=== PATIENT | female | born 1940 | race Caucasian/White ===

== ENCOUNTER 2017-12-24 22:06 | Emergency (ER) | payer OTHER, SELFPAY ==
--- NOTE | 2017-12-24 22:07 | DI.RAD.S_ITS ---
PROCEDURE: XR WRIST LT MIN 3V INDICATIONS: left wrist injury,pt fell onto outstretched arm TECHNIQUE: 4 views of the wrist were acquired. COMPARISON: None. FINDINGS: Bones: There is comminuted intra-articular fracture of the distal radial metaphysis with dorsal displacement and impaction. In addition, there is ulnar styloid fracture with no displacement. No suspicious bony lesions. There is widening of distal radioulnar joint (DRUJ). Dorsal displacement of lunate. 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 Scaphoid view: Scaphoid appears intact. Soft tissues: Triangular fibrocartilage calcifications. Soft tissue thickening. IMPRESSION: 1. Comminuted intra-articular fracture of the distal radial metaphysis with displacement and impaction. 2. Nondisplaced ulnar styloid fracture. 3. Dorsal displacement of lunate suspicious for ligamentous injuries. 4. Triangular fibrocartilage calcifications. Dictated by: Zechariah Byrne M.D. on 12/25/2017 at 9:17 Approved by: Zechariah Byrne M.D. on 12/25/2017 at 9:27
[2017-12-24 22:15] VITALS: BP 150/76; PULSE 80; RESP 20; TEMP 36.6; O2SAT 97; BMI 20.9
--- NOTE | 2017-12-25 00:18 | DI.RAD.S_ITS ---
PROCEDURE: XR WRIST LT 2V INDICATIONS: post reduction TECHNIQUE: 2 views of the wrist were acquired. COMPARISON: [facility], CR, XR WRIST LT MIN 3V, 12/24/2017, 21:56. FINDINGS: Bones: There is comminuted, intra-articular radial metaphyseal fracture. There is slightly improved alignment status post closed reduction. Findi dose are obscured by overlying cast. No suspicious bony lesions. Soft tissues: No suspicious soft tissue calcifications. IMPRESSION: Slightly improved alignment after closed reduction of distal radial metaphyseal fracture. Dictated by: Zechariah Byrne M.D. on 12/25/2017 at 9:40 Approved by: Zechariah Byrne M.D. on 12/25/2017 at 9:42
--- NOTE | 2017-12-25 00:18 | ED_ITS ---
HPI - Extremity Injury (Upper) General Chief Complaint: Extremity Injury, Upper Stated Complaint: Left Wrist Injury Time Seen by Provider: 12/25/17 00:16 Source: patient Mode of arrival: ambulatory Limitations: no limitations History of Present Illness HPI narrative: The patient is a 77-year-old female who presents from [facility] with left wrist deformity. She fell forward on an outstretched hand while walking her dog. Denies numbness or tingling. She does appear to have hit her head as well she has got an abrasion on the left side denies loss of consciousness no nausea vomiting or weakness. Related Data Previous Rx's Medication Instructions Recorded hydrocodone-acetaminophen [[place]] 1 tab PO Q6H PRN #10 tab 12/25/17 Allergies Allergy/AdvReac Type Severity Reaction Status Date / Time ephedrine [From TEDRAL] Allergy Intermediate VOMITING Verified 12/24/17 22:18 phenobarbital [PHENOBARBITAL] Allergy Intermediate VOMITING Verified 12/24/17 22 :18 theophylline [From TEDRAL] Allergy Intermediate VOMITING Verified 12/24/17 22:18 Review of Systems Review of Systems GENERAL: Denies chills,fever HEENT: Denies throat pain RESPIRATORY: Denies dyspnea, cough, wheezing CARDIOVASCULAR: Denies chest pain, palpitations GASTROINTESTINAL: Denies nausea, vomiting MUSCULOSKELETAL: See HPI SKIN: No rash, no laceration, no pruritus NEUROLOGIC: Denies weakness, dizziness, headache, numbness 8 point review of systems is negative except for those stated above and HPI PFSH Medical History Hyperlipidemia (Acute) Hypothyroid (Acute) Social History Smoking Status: Former smoker alcohol intake: never substance use type: does not use Exam Initial Vital Signs Initial Vital Signs: Vital Signs Temperature 98 F 12/24/17 22:15 Pulse Rate 80 12/24/17 22:15 Respiratory Rate 20 12/24/17 22:15 Blood Pressure 150/76 H 12/24/17 22:15 Pulse Oximetry 97 12/24/17 22:15 GENERAL: Well-appearing, well-nourished and in no acute distress. HEAD: Abrasion noted on left side of forehead without crepitations or depression EYES: Extraocular muscles intact, EZE CARDIOVASCULAR: peripheral pulses in tact, cap refill <2 sec RESPIRATORY: No respiratory distress, speaks in full sentences without difficulty EXTREMITIES: Normal range of motion, no clubbing or edema. Neurovascularly intact Left wrist: Contusion and swelling noted laterally. No obvious bony deformity a distal radial pulse intact able to move all 4 NEUROLOGICAL: Cranial nerves II through XII grossly intact. Normal gait and speech. SKIN: Warm, dry, no petechiae, no rashes or lesions. Procedures Orthopedic Fracture Reduction Fracture #1: Time Out Performed: Yes Side: left Fracture Reduction Location: radius Analgesia: hematoma block Technique: direct manipulation Post Reduction X-rays Demonstrate: acceptable reduction Post-reduction neuro exam: intact Post-reduction vascular exam: intact Splint Applied: Yes Patient Tolerated Procedure: Well Orthopedic Splinting/Casting Injury #1: Side: left Upper Extremity Injury Location: wrist Upper Extremity Immobilizer: posterior splint and volar splint Additional Comments: Splint applied by me and 1st nurse neurovascularly intact Course Orders Ordered: ED Orders 12/24/17 22:07 XR wrist LT min 3V Stat 12/25/17 00:18 XR wrist LT 2V Stat Discontinued Medications Hydrocodone Bitart/Acetaminophen (Vicodin Prepack) 1 bottle MISC SEEINSTR ONE Stop: 12/25/17 00:17 Last Admin: 12/25/17 00:27 Dose: 1 bottle Vital Signs - 8 hr 12/24/17 22:15 12/25/17 01:08 Temperature 98 F 98.2 F Pulse Rate 80 84 Respiratory Rate 20 16 Blood Pressure 150/76 H Blood Pressure [Right Arm] 136/68 H Pulse Oximetry 97 MDM - Extremity Injury (Upper) Imaging Data Left wrist x-ray 1.: Attestation: I personally reviewed and interpreted this imaging study as follows: My impression: Comminuted displaced intra-articular distal radius fracture Left wrist x-ray 2.: Attestation: I personally reviewed and interpreted this imaging study as follows: My impression: Improved alignment persistent comminuted fracture questionable hamate dislocation MDM Narrative Medical decision making narrative: The patient states it is feeling better after his reduction and splint placement. She will likely need surgery. I have discussed this with her. She understands she will call Orthopedics in the morning and follow-up. Discharge Plan Departure Patient Disposition: Home, Self-Care Clinical Impression: Fracture of left wrist Discharge Date/Time: 12/25/17 01:22 Interventions: ED Discharge Assessment Last Done: 12/25/17 01:21 Instructions: DI for Wrist Fracture Activity Restrictions/Additional Instructions: *You have been diagnosed with left wrist fracture *What to do: Keep arm in splint at all times until evaluation by Orthopedics. -the keep it dry. -ice 20 min at a time through this *Continue to take medications as directed 1 [place] every 6 hr if needed for pain you may break in half if needed *Follow up with your primary care provider in 2-3 days, call Orthopedics tomorrow to schedule follow-up appointment *Return to ER if you should have increased pain, numbness tingling or any new, worsening or concerning symptoms CONTROLLED SUBSTANCE DISCHARGE (Narcotoic/benzodiazepine/Flexeril/Phenergan) 1. You have been prescribed narcotic medications, it does have acetaminophen/ Tylenol/paracetamol in it so do not take extra Tylenol or Tylenol containing products 2. Please understand that we cannot provide further refills of narcotics, benzodiazepines or controlled substances through the ED and her pain management will need to be through your provider. 3. While on these medications you cannot drive or operate heavy machinery. 4. You cannot sign legal documents or perform any duties such as this. 5. As long as you're taking opiate pain medications he should also be taking a stool softener such as Colace, Dulcolax, MiraLAX or prune juice, to help avoid constipation. Prescriptions: New hydrocodone-acetaminophen [[place]] 5-325 mg tablet 1 tab PO Q6H PRN (Reason: pain (scale score 4-6)) Qty: 10 RF: 0 Referrals: [facility] [Outside] Herman Valdovinos [Primary Care Provider] -
[2017-12-25] MEDS: HYDROCODONE/ACET 5/325 PREPACK 1 BOTTLE MISC (00:27)
[2017-12-25 01:08] VITALS: BP 136/68; PULSE 84; RESP 16; TEMP 36.8
== END 2017-12-25 01:22 | disposition home or self-care (01) ==
PROVIDERS: Emergency Provider Emergency Medicine; Family Provider Family Medicine; PCP Family Medicine
DX: S62.102A Fracture of unspecified carpal bone, left wrist, initial encounter for closed fracture (principal); W19.XXXA Unspecified fall, initial encounter
CPT/HCPCS: 25505; 73100; 73110; 99282; 99283

== ENCOUNTER → 2017-12-29 10:25 | Outpatient (CLI) | payer OTHER, SELFPAY ==
--- NOTE | 2017-12-29 | DI.CT.S_ITS ---
PROCEDURE: CT UE LT WO CON INDICATIONS: CLOSED FRACTURE OF DISTAL END OF LEFT RADIUS TECHNIQUE: Noncontrast 1 mm axial sections acquired through the carpal bones, with coronal and sagittal reformats. COMPARISON: [facility], CR, XR WRIST LT 2V, 12/25/2017, 0:51. FINDINGS: Image quality: Excellent. Bones: Examination of left wrist shows comminuted impaction type fracture involving distal radial shaft metaphysis with fracture line extending to radiocarpal joint space. There is shortening of distal radial shaft with approximately a 5 mm overlapping of the fracture fragments along radial aspect. 3 mm depression of the radial styloid fragment is also seen with 2-3 mm lateral displacement at fracture site. Slightly medially displaced fracture involving the ulnar styloid base is seen. No other fracture or dislocation is seen. Widening of scapholunate interval is seen suggestive of injury to the scapholunate ligament. 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 Soft tissues: There is chondrocalcinosis in the region of triangular fibrocartilage complex. Mild wrist soft tissue swelling is seen. IMPRESSION: 1. Impaction type comminuted fracture involving distal radius shaft metaphysis extending to involve radiocarpal joint with displacement of fracture fragments as described above. 2. Minimally displaced ulnar styloid fracture. 3. Osteoarthritic changes throughout wrist joints. Widening of scapholunate interval which may represent injury involving scapholunate ligament. No acute scaphoid fracture. Dictated by: Dane Tomlin M.D. on 12/29/2017 at 11:05 Approved by: Dane Tomlin M.D. on 12/29/2017 at 11:21
== END ==
PROVIDERS: Family Provider Family Medicine; PCP Family Medicine; Visit Provider Orthopaedic Surgery
DX: S52.502A Unspecified fracture of the lower end of left radius, initial encounter for closed fracture (principal); S52.612A Displaced fracture of left ulna styloid process, initial encounter for closed fracture; M19.032 Primary osteoarthritis, left wrist
CPT/HCPCS: 73200

== ENCOUNTER 2018-01-01 08:59 | Day surgery (SDC) | payer OTHER, SELFPAY ==
[2017-12-29 07:32] VITALS: BMI 21.7
[2018-01-01] VITALS (9 sets, daily range): BP systolic 126–152; BP diastolic 63–79; PULSE 78–95; RESP 11–20; TEMP 36.2–37.1; O2SAT 92–98; BMI 20.9
[2018-01-01] MEDS: LACTATED RINGERS 1,000 ML 42 ML IV ×2 (09:45→11:04)
--- NOTE | 2018-01-01 09:45 | SUR.PREOP ---
PT ALSO OBSERVED TO HAVE BRUISING ON THE LEFT SIDE OF HER FACE RELATED TO PREVIOUS FALL. VERBAL ORDER RECEIVED FROM DR. CASTANON FOR [facility] FOR SURGICAL PROCEDURE. COMMUNICATED THIS WITH CIRCULATING RN.
--- NOTE | 2018-01-01 09:50 | PM.PREOP ---
Pre-operative Note Interval Note Pre-op Check: Yes History & Physical Reviewed by Physician Changes: No
[2018-01-01] MEDS: CEFAZOLIN 2 GM/100 ML FROZ.PIGGY IV (10:00)
--- NOTE | 2018-01-01 10:36 | SUR.OPER ---
Supine on padded OR bed, head on pillow, arms secured on padded arm boards at <90 degrees abduction, legs uncrossed, safety belt at thigh, tape over blanket over lower legs.
[2018-01-01] MEDS: BUPIVACAINE 0.25% W/ EPI VIAL 50 ML INJ (10:42)
--- NOTE | 2018-01-01 13:01 | P.OP_ITS ---
Operative Date/Time/Diagnoses Date of procedure: 01/01/18 Time of procedure: 10:30 Pre-op diagnosis: Highly comminuted intra-articular distal radius fracture Post-op diagnosis: same Procedure & Clinicians Procedure: Open reduction internal fixation of a left intra-articular distal radius fracture Same procedure as scheduled: Yes Indications: Highly comminuted and displaced intra-articular distal radius fracture Surgeon: Job Hill Anesthesia Type: General Operative Notes Findings: Comminuted displaced intra-articular distal Closure Type: primary Specimen(s): none sent Implants & Drains: Tri Med radial pin plate, volar plate as well as dorsal pin plate Applied: implant(s) Estimated Blood Loss (mL): 5 Blood products transfused: none Tourniquet time (min): 110 Procedure in detail: On date of service, patient was met in the holding area. Operative site was signed and witnessed by the OR staff. The surgery once again discussed with patient and any remaining questions they had were answered fully. Patient was taken back to the operating theater and placed on the operating table in the supine position. Great care taken to ensure that all bony prominences were properly padded. A well-padded tourniquet was placed up along the upper extremity. A timeout was performed to verify patient's name, procedure, and operative site. The upper extremity was then prepped and draped in the normal sterile fashion. An Esmarch was used to exsanguinate the limb and the tourniquet was turned up to 250 mm mercury. A FCR. approach was performed to expose the distal radius.A 15 blade was used to incise the skin and fascial tissue. Pickups and tenotomy scissors used to dissect down until the FCR tendon was visualized. The FCR tendon was freed up from its sheath and retracted ulnarly. Floor of the FCR tendon was opened allowing us to retract the flexor tendons and median nerve ulnarly. Partial release of the brachioradialis was also performed. The pronator quadratus was then lifted off the distal radius in a periosteal fashion. This gives good visualization of the distal radius as well as the fracture. A reduction maneuver was performed and a plate was held provisionally with a K wire. C-arm was brought in and AP and lateral views were obtained to verify plate position as well as reduction. Both were satisfied with the position of the plate the distal locking screws were placed. X-rays were obtained again verifying screw positioning. Next, a plate was used to complete the reduction of the distal radius. We're able to correct the radial inclination , height, and tilt. Once we were satisfied with the overall reduction of the distal radius, the proximal screws were placed securing the plate to the radius shaft. Volar plate did a good job of recreating the volar tilt in correcting the volar column fragment. Patient still had displacement of the dorsal column as well as the radial column. Through the same volar incision, K-wire was placed across the tip of the radial styloid. Radial pin plate was placed and secured both distally and proximally providing good overall fixation of the radial styloid. Next we turned our attention to the displaced dorsal fragment. Ten blade was used to make an incision down the dorsal aspect of the wrist centered over Natividad's tubercle. Deep knife was then used to dissect down until the extensor retinaculum was visualized. Sec and 3rd extensor compartments were opened as well as the 4th. Fourth was taken ulnarly well the 2nd and 3rd were taken radially. This gave us good visualization of the dorsal ulnar fragment. This was reduced and held provisionally with a K-wire. C-arm used to verify reduction. Next, fragment specific dorsal pin plate was placed allowing good reduction of the dorsal ulnar column fragment. Wound was copiously irrigated and closed in a layered fashion. The wound was then copiously irrigated. Final x-rays were obtained. The Wound was closed in layered fashion. Marcaine was injected around the incision sites as well as the median and ulnar nerve for postoperative pain control. The hand was then cleaned, dried, and dressed. Splint was placed and patient was taken to the PACU in stable condition. Complications: none Condition: stable Disposition: PACU Plan for aftercare: No restrictions to range of motion of the fingers. No restrictions to range of motion of the radiocarpal joint in 2-3 days. No lifting more than 2-3 lb for the next 6 weeks.
--- NOTE | 2018-01-01 13:08 | SUR.PHASEI ---
Pt denied pain or numbness
--- NOTE | 2018-01-01 14:16 | SUR.PHASEII ---
PT IN STABLE CONDITION, VSS. PT SITTING UP IN STRETCHER WITH EYES CLOSED, EASILY AROUSABLE TO VOICE WHEN SPOKEN TO. IV SITE CLEAR AND INFUSING WITHOUT DIFFICULTLY. DRSG TO SURGICAL ARM C/D/I. SURGICAL HAND WARM TO TOUCH, +SENSTATION AND WEAK STRENGTH RELATED TO NUMBING MEDICATION GIVEN IN THE OR. PT RESTING TO REST LONGER PRIOR TO GOING HOME. BED IN LOWEST POSITION AND CALL LIGHT GIVEN TO PT. PT APPEARS COMFORTABLE AT THIS TIME.
== END 2018-01-01 14:56 | disposition home or self-care (01) ==
PROVIDERS: PCP Family Medicine; Visit Provider Orthopaedic Surgery
PROC: (CPT 25609; principal; 2018-01-01 10:15)
DX: S52.572A Other intraarticular fracture of lower end of left radius, initial encounter for closed fracture (principal); W19.XXXA Unspecified fall, initial encounter; I10 Essential (primary) hypertension
CPT/HCPCS: 25609; J0690; J1100; J2405; J2704; J3010

== ENCOUNTER → 2018-02-18 11:26 | Outpatient (CLI) | payer OTHER, SELFPAY ==
--- NOTE | 2018-02-18 | DI.CT.S_ITS ---
PROCEDURE: CT UE LT WO CON INDICATIONS: LEFT RADIUS FRACTURE TECHNIQUE: Noncontrast 1 mm axial sections acquired through the carpal bones, with coronal and sagittal reformats. COMPARISON: [facility], CR, XR WRIST LT 2V, 12/25/2017, 0:51. [facility], CR, XR WRIST 3+ VIEWS LEFT, 01/14/2018, 13:26. [facility], CR, XR WRIST 3+ VIEWS LEFT, 02/13/2018, 11:26. [facility], CT, CT UE LT WO CON, 12/29/2017, 10:31. FINDINGS: Image quality: Excellent. Extensive surgical fixation of distal radial fracture with plate and screws is noted. Hardware appears grossly intact. There is reduced impacted appearance. There is mild residual incongruity of the distal radioarticular surface as before although less cortical step-off. Numerous small fracture fragments seen in the radiocarpal compartment. Ulnar styloid fracture is grossly unchanged in alignment. Background first CMC joint degeneration. There is widened appearance of the scapholunate interval as before. Degenerative chronic cystic changes present in the proximal carpal row most notably the triquetral and lunate. There is also minimally widened appearance of the distal radioulnar joint IMPRESSION: Postsurgical changes related to internal fixation of distal radial fracture with plate and screws. Ulnar styloid fracture as before. Widened appearance of the scapholunate interval raising the possibility of ligamentous injury as previously discussed. Dictated by: Jordan White M.D. on 02/18/2018 at 12:18 Approved by: Jordan White M.D. on 02/18/2018 at 12:26
== END ==
PROVIDERS: PCP Family Medicine; Visit Provider Orthopaedic Surgery
DX: S52.502D Unspecified fracture of the lower end of left radius, subsequent encounter for closed fracture with routine healing (principal); S52.612D Displaced fracture of left ulna styloid process, subsequent encounter for closed fracture with routine healing
CPT/HCPCS: 73200

== ENCOUNTER → 2019-03-31 10:55 | Outpatient (CLI) | payer OTHER, SELFPAY ==
[2019-03-31 11:36] LABS: Cholesterol 169 mg/dL (140-199); HDL Cholesterol 80 mg/dL (40-60); LDL Cholesterol Calculated 79 mg/dL (<100); Triglycerides 51 mg/dL (35-150)
[2019-03-31 16:22] LABS: Alanine Aminotransferase 21 IU/L (<35); Albumin 4.6 g/dL (3.5-5.0); Albumin Globulin Ratio 1.6 (1.0-2.8); Alkaline Phosphatase 63 U/L (38-126); Aspartate Aminotransferase 41 IU/L (14-36); BUN Creatinine Ratio 21.7 (6-22); Bilirubin Total 0.5 mg/dL (0.2-1.3); Blood Urea Nitrogen 13 mg/dL (7-17); Calcium 9.3 mg/dL (8.4-10.2); Carbon Dioxide 28 mmol/L (22-32); Chloride 98 mmol/L (98-107); Estimated Glomerular Filt Rate > 60.0 mL/min (>60); Globulin 2.8 g/dL (1.7-4.1); Glucose 104 mg/dL (80-110); HEMOLYSIS < 15 (0-50); Sodium 136 mmol/L (137-145); Total Protein 7.4 g/dL (6.3-8.2)
== END ==
PROVIDERS: PCP Family Medicine; Visit Provider Physician Assistant Medical
DX: E78.2 Mixed hyperlipidemia (principal)
CPT/HCPCS: 36415; 80053; 80061

== ENCOUNTER → 2020-01-04 13:28 | Outpatient (CLI) | payer MEDICARE, SELFPAY ==
--- NOTE | 2020-01-04 | DI.ECHO.S_ITS ---
[facility] +---------+ : : [address] : : : : [id number] : : : : Phone: [phone]+ Echocardiogram Report + + :Name: ADAM RAMSAY Study Date: 01/04/2020 Height: 64 in : :[facility] Weight: 135 lb : : Gender: Female BSA: 1.7 m2 : :: 1940 Age: 79 yrs BP: 160/81 mmHg: :Reason For Study: AORTIC INSUFFICIENCY : :Ordering Physician: TATIANNA, : :VALERIE Performed By: Fabiola Ruff : :Referring: VALERIE CAMPUZANO : + + Interpretation Summary Left ventricular systolic function remains normal with an estimated ejection fraction of 60 to 65% without any focal wall motion abnormality. Left ventricular size and wall thickness remain normal with an estimated end- diastolic volume of 69 mL, and is likely unchanged from the previous study. There is a probable relaxation abnormality but normal filling pressures. There has been no significant change from the previous echocardiogram. The right ventricle appears normal. Right ventricular systolic pressure cannot be estimated but CVP remains likely around 3 mmHg. The left atrium is mildly enlarged while the right atrium appears normal in size and both are likely slightly smaller compared to the previous exam. There is mild mitral regurgitation that appears unchanged. There is moderate tricuspid regurgitation through an anatomically normal valve and appears unchanged from the previous exam. Deceleration slope is 2.9 m/s2 compared to 3.1 m/s2 on the previous study. There is no other significant valvular abnormality. The ascending aorta is borderline enlarged but unchanged from the previous study. Procedure: A two-dimensional transthoracic echocardiogram with color flow and Doppler was performed. The study quality was technically good. Comparison is made with the echocardiogram of 07/09/2017. The patient was in sinus rhythm with heart rates between 78-88 bpm during the exam. The patient had occasional PVCs during the exam. Left Ventricle: The left ventricle is normal in size, wall thickness, and systolic function without any focal wall motion abnormalities. The estimated left ventricular end diastolic volume is 69 ml. The ejection fraction is estimated to be 60-65%. Diastolic parameters suggest a relaxation abnormality of the left ventricle, consistent with probable normal filling pressures. There has been no significant change since the previous study. Right Ventricle: The right ventricle is normal in size and function. This is unchanged compared to the previous study. Atria: The left atrium is mildly dilated. Both atria have mildly decreased in size since the prior echo exam. Right atrial size is normal. There is no Doppler evidence for an interatrial shunt. Mitral Valve: The mitral valve is normal in structure and function. There is mild mitral regurgitation. Aortic Valve: The aortic valve is trileaflet. The aortic valve opens well. There is no aortic valve stenosis. There is moderate aortic regurgitation. This is unchanged compared to the previous study. Tricuspid Valve: The tricuspid valve is normal in structure and function. There is trace tricuspid regurgitation. Pulmonary artery pressures cannot be estimated because of the lack of a measurable TR jet velocity but the IVC suggests a CVP of around 3 mmHg. Pulmonic Valve: The pulmonic valve leaflets are thin and pliable; valve motion is normal. There is no pulmonic valvular regurgitation. There is no other significant valvular heart disease. Great Vessels: The aortic root is normal size. The ascending aorta is mildly enlarged. This is unchanged compared to the previous study. The IVC is of normal diameter and collapses greater than 50% with a sniff. This suggests a low right atrial pressure of 3 mm Hg. Pericardium/ Pleura There is no pericardial effusion. There is no pleural effusion. MMode/2D Measurements & Calculations LVIDd: 5.0 cm LVOT diam: 2.0 cm LVIDs: 3.3 cm Ao root diam: 3.2 cm FS: 34.4 % asc Aorta Diam: 3.5 cm EPSS: 1.2 cm Ao Arch Diam (Prox Trans): 2.9 cm IVSd: 0.97 cm LVPWd: 0.72 cm LV richards. diameter/BSA (cm/m^2): 3.0 LV sys. diameter/BSA (cm/m^2): 2.0 LA A2 area: 23.0 cm2 RA long axis: 5.0 cm LA A4 area: 15.3 cm2 RA area: 15.8 cm2 LA length (vol): 4.7 cm RA vol: 42.6 ml LA vol: 63.0 ml RA : 25.7 ml/m2 LA vol index: 38.1 ml/m2 IVC diam: 1.4 cm RVD1 (basal): 3.2 cm TAPSE: 1.8 cm Doppler Measurements & Calculations Ao V2 max: 164.2 cm/sec LVOT Max Tristen: 121.5 cm/sec Ao V2 mean: 102.7 cm/sec LV V1 max P.9 mmHg Ao max P.8 mmHg LV V1 VTI: 26.4 cm Ao mean P.3 mmHg MADDIE(I,D): 2.7 cm2 Ao V2 VTI: 32.1 cm MADDIE(V,D): 2.4 cm2 sev ratio: 0.82 MADDIE indexed to BSA (cm^2/m^2): 1.6 AI P1/2t: 442.8 msec AI dec slope: 304.8 cm/sec2 MV E max tristen: 63.7 cm/sec PA V2 max: 100.7 cm/sec MV A max tristen: 96.4 cm/sec PA V2 mean: 61.8 cm/sec MV E/A: 0.66 PA mean P.8 mmHg Med Peak E' Tristen: 5.3 cm/sec PA pr(Accel): 5.4 mmHg E/E' med: 12.0 Lat Peak E' Tristen: 9.4 cm/sec E/E' lat: 6.7 E/e' average: 9.4 MV dec time: 0.20 sec SV(LVOT): 85.9 ml Reading Physician:09:11 AM
== END ==
PROVIDERS: PCP Family Medicine; Referring Provider Family Medicine; Visit Provider Specialist
DX: I08.0 Rheumatic disorders of both mitral and aortic valves (principal); I77.89 Other specified disorders of arteries and arterioles
CPT/HCPCS: 93306

== ENCOUNTER → 2020-12-26 10:20 | Outpatient (CLI) | payer MEDICARE, SELFPAY ==
[2020-12-26 20:38] LABS: Alanine Aminotransferase 22 IU/L (<35); Albumin 4.2 g/dL (3.5-5.0); Albumin Globulin Ratio 1.6 (1.0-2.8); Alkaline Phosphatase 89 U/L (38-126); Aspartate Aminotransferase 38 IU/L (14-36); BUN Creatinine Ratio 21.1 (6-22); Bilirubin Total 0.5 mg/dL (0.2-1.3); Blood Urea Nitrogen 12 mg/dL (7-17); Calcium 9.5 mg/dL (8.4-10.2); Carbon Dioxide 29 mmol/L (22-32); Chloride 98 mmol/L (98-107); Estimated Glomerular Filt Rate > 60.0 mL/min (>60); Globulin 2.6 g/dL (1.7-4.1); Glucose 94 mg/dL (80-110); HEMOLYSIS < 15 (0-50); Potassium 4.3 mmol/L (3.4-5.1); Sodium 135 mmol/L (137-145); Total Protein 6.8 g/dL (6.3-8.2)
== END ==
PROVIDERS: PCP Physician Assistant; Referring Provider Specialist; Visit Provider Specialist
DX: E78.5 Hyperlipidemia, unspecified (principal)
CPT/HCPCS: 80053

== ENCOUNTER → 2021-12-05 12:21 | Outpatient (CLI) | payer MEDICARE, SELFPAY | PROVIDERS: PCP Family Medicine; Referring Provider Family Medicine; Visit Provider Family Medicine | DX: M81.0 Age-related osteoporosis without current pathological fracture (principal); Z78.0 Asymptomatic menopausal state; Z98.890 Other specified postprocedural states; Z87.81 Personal history of (healed) traumatic fracture; G89.29 Other chronic pain; I10 Essential (primary) hypertension; E78.5 Hyperlipidemia, unspecified; M25.532 Pain in left wrist; M85.88 Other specified disorders of bone density and structure, other site | CPT/HCPCS: 77080 ==

== ENCOUNTER → 2022-03-19 11:21 | Outpatient (CLI) | payer MEDICARE, SELFPAY ==
[2022-03-19 19:32] LABS: Alanine Aminotransferase 24 IU/L (<35); Albumin 4.4 g/dL (3.5-5.0); Albumin Globulin Ratio 1.5 (1.0-2.8); Alkaline Phosphatase 99 U/L (38-126); Aspartate Aminotransferase 34 IU/L (14-36); Bilirubin Total 0.6 mg/dL (0.2-1.3); Bilirubin Unconjugated 0.6 mg/dL (0.0-1.1); Blood Urea Nitrogen 15 mg/dL (7-17); Calcium 9.5 mg/dL (8.4-10.2); Carbon Dioxide 30 mmol/L (22-32); Chloride 94 mmol/L (98-107); Cholesterol 167 mg/dL (140-199); Estimated Glomerular Filt Rate > 60 mL/min (>60); Globulin 2.9 g/dL (1.7-4.1); Glucose 93 mg/dL (80-110); HDL Cholesterol 97 mg/dL (40-60); HEMOLYSIS < 15 (0-50); LDL Cholesterol Calculated 61 mg/dL (<100); Potassium 4.1 mmol/L (3.4-5.1); Sodium 134 mmol/L (137-145); Total Protein 7.3 g/dL (6.3-8.2); Triglycerides 45 mg/dL (35-150)
[2022-03-19 19:52] LABS: TSH w/ Reflex to FT4 1.72 uIU/mL (0.47-4.68)
[2022-03-19 22:14] LABS: Vitamin D 25 Hydroxy (D3) 19.3 ng/mL (30.0-100.0)
== END ==
PROVIDERS: PCP Family Medicine; Visit Provider Family Medicine
DX: I10 Essential (primary) hypertension (principal); M81.0 Age-related osteoporosis without current pathological fracture; E03.9 Hypothyroidism, unspecified; E78.5 Hyperlipidemia, unspecified; G89.29 Other chronic pain; M25.532 Pain in left wrist; Z78.0 Asymptomatic menopausal state; Z98.890 Other specified postprocedural states; R79.89 Other specified abnormal findings of blood chemistry; E55.9 Vitamin D deficiency, unspecified
CPT/HCPCS: 80048; 80061; 80076; 82306; 84443

== ENCOUNTER → 2022-07-18 14:13 | Outpatient (CLI) | payer MEDICARE, SELFPAY ==
[2022-07-18 20:17] LABS: BUN Creatinine Ratio 24.6 (6-22); Blood Urea Nitrogen 16 mg/dL (7-17); Calcium 9.5 mg/dL (8.4-10.2); Carbon Dioxide 30 mmol/L (22-32); Chloride 94 mmol/L (98-107); Estimated Glomerular Filt Rate > 60 mL/min (>60); Glucose 91 mg/dL (80-110); HEMOLYSIS < 15 (0-50); Potassium 4.2 mmol/L (3.4-5.1); Sodium 135 mmol/L (137-145)
[2022-07-18 20:32] LABS: Vitamin D 25 Hydroxy (D3) 44.5 ng/mL (30.0-100.0)
== END ==
PROVIDERS: PCP Family Medicine; Visit Provider Family Medicine
DX: M81.0 Age-related osteoporosis without current pathological fracture (principal); E55.9 Vitamin D deficiency, unspecified; E87.1 Hypo-osmolality and hyponatremia
CPT/HCPCS: 80048; 82306

== ENCOUNTER → 2022-09-18 14:00 | Outpatient (CLI) | payer MEDICARE, SELFPAY ==
[2022-09-18 20:06] LABS: Free T4, Direct Thyroxine 1.13 ng/dL (0.78-2.19)
[2022-09-18 20:20] LABS: Thyroid Stimulating Hormone 2.82 uIU/mL (0.47-4.68)
== END ==
PROVIDERS: PCP Family Medicine; Visit Provider Family Medicine
DX: I10 Essential (primary) hypertension (principal); E03.9 Hypothyroidism, unspecified
CPT/HCPCS: 84439; 84443

== ENCOUNTER → 2022-12-18 12:22 | Outpatient (CLI) | payer MEDICARE, SELFPAY ==
--- NOTE | 2022-12-18 | DI.US.S_ITS ---
PROCEDURE: US CAROTID DOPPLER BI INDICATIONS: STENOSIS TECHNIQUE: Color and pulse Doppler interrogation was performed of both carotid systems, with image documentation and velocity measurements. COMPARISON: [facility], [place], [place] CAROTID DPLX DOPPLER BILAT, 01/04/2015, 9:46. [facility], [place], CAROTID DUPLEX DOPPLER BILAT, 04/03/2011, 13:06. FINDINGS: Stenosis calculations are based on SRU (Society of Radiologists in Ultrasound) criteria. The flow velocities and the arterial waveforms are normal within both carotid arterial systems. Atherosclerotic plaque is seen on the left. The estimated degree of internal carotid artery stenosis is less than 50%. Antegrade flow is confirmed within both vertebral arteries. IMPRESSION: No hemodynamically significant stenosis is seen. Similar to prior. Dictated by: Blaze Trammell M.D. on 12/18/2022 at 12:28 Approved by: Blaze Trammell M.D. on 12/18/2022 at 12:30
== END ==
PROVIDERS: PCP Family Medicine; Referring Provider Specialist; Visit Provider Specialist
DX: I65.23 Occlusion and stenosis of bilateral carotid arteries (principal)
CPT/HCPCS: 93880

== ENCOUNTER → 2023-01-08 10:21 | Outpatient (CLI) | payer MEDICARE, SELFPAY ==
[2023-01-08 11:37] LABS: Alanine Aminotransferase 32 IU/L (<35); Albumin 3.5 g/dL (3.5-5.0); Albumin Globulin Ratio 1.2 (1.0-2.8); Alkaline Phosphatase 93 U/L (38-126); Aspartate Aminotransferase 31 IU/L (14-36); BUN Creatinine Ratio 12.1 (6-22); Bilirubin Total 0.5 mg/dL (0.2-1.3); Blood Urea Nitrogen 7 mg/dL (7-17); Calcium 8.9 mg/dL (8.4-10.2); Carbon Dioxide 27 mmol/L (22-32); Chloride 97 mmol/L (98-107); Cholesterol 149 mg/dL (140-199); Estimated Glomerular Filt Rate > 60 mL/min (>60); Globulin 2.9 g/dL (1.7-4.1); Glucose 98 mg/dL (80-110); HDL Cholesterol 45 mg/dL (40-60); HEMOLYSIS < 15 (0-50); LDL Cholesterol Calculated 89 mg/dL (<100); Potassium 3.6 mmol/L (3.4-5.1); Sodium 134 mmol/L (137-145); Total Protein 6.4 g/dL (6.3-8.2); Triglycerides 73 mg/dL (35-150)
[2023-01-08 23:49] LABS: Magnesium 1.8 mg/dL (1.6-2.3)
== END ==
PROVIDERS: PCP Family Medicine; Referring Provider Physician Assistant Medical; Visit Provider Specialist
DX: I10 Essential (primary) hypertension (principal); E78.00 Pure hypercholesterolemia, unspecified; I49.1 Atrial premature depolarization
CPT/HCPCS: 36415; 80053; 80061; 83735

== ENCOUNTER → 2023-01-14 13:41 | Outpatient (CLI) | payer MEDICARE, SELFPAY ==
[2023-01-14 19:41] LABS: BUN Creatinine Ratio 20.6 (6-22); Blood Urea Nitrogen 13 mg/dL (7-17); Calcium 9.4 mg/dL (8.4-10.2); Carbon Dioxide 25 mmol/L (22-32); Chloride 102 mmol/L (98-107); Estimated Glomerular Filt Rate > 60 mL/min (>60); Glucose 103 mg/dL (80-110); HEMOLYSIS < 15 (0-50); Sodium 137 mmol/L (137-145)
[2023-01-14 19:47] LABS: Rheumatoid Factor < 8.6 IU/mL (<12.0)
[2023-01-14 19:50] LABS: Erythrocyte Sedimentation Rate 56 MM/HR (0-20)
[2023-01-16 20:59] LABS: CCP Antibodies IgG/IgA 4 units (0-19)
[2023-01-20 09:48] LABS: ANA Screen, IFA Negative (.)
== END ==
PROVIDERS: PCP Family Medicine; Visit Provider Family Medicine
DX: M19.041 Primary osteoarthritis, right hand (principal); M19.042 Primary osteoarthritis, left hand; E87.1 Hypo-osmolality and hyponatremia
CPT/HCPCS: 80048; 85651; 86038; 86200; 86430

== ENCOUNTER → 2023-06-16 12:49 | Outpatient (CLI) | payer MEDICARE, SELFPAY ==
[2023-06-16 20:08] LABS: Add Manual Diff / Slide Review NO; Basophils Absolute Auto 100 /uL (0-100); Basophils Percent Auto 1.1 % (0-2); Eosinophils Absolute Auto 100 /uL (0-450); Eosinophils Percent Auto 1.5 % (2-4); Hematocrit 35.3 % (36-46); Hemoglobin 11.8 g/dL (12.0-16.0); Lymphocytes Absolute Auto 1400 /uL (1100-4500); Lymphocytes Percent Auto 27.3 % (25-40); Mean Corpuscular HGB Conc 33.6 % (30-36); Mean Corpuscular Hemoglobin 31.1 PG (26-34); Mean Corpuscular Volume 92.7 fL (80-100); Monocytes Absolute Auto 600 /uL (0-900); Monocytes Percent Auto 11.9 % (3-14); Neutrophils Absolute Auto 2900 /uL (1500-7000); Neutrophils Percent Auto 58.2 % (50-75); Platelet Count 265 X10^3/uL (150-400); Red Cell Distribution Width 14.5 % (11.6-14.8)
[2023-06-16 20:19] LABS: Alanine Aminotransferase 26 IU/L (<35); Albumin 4.1 g/dL (3.5-5.0); Albumin Globulin Ratio 1.5 (1.0-2.8); Alkaline Phosphatase 64 U/L (38-126); Aspartate Aminotransferase 35 IU/L (14-36); BUN Creatinine Ratio 22.2 (6-22); Bilirubin Total 0.5 mg/dL (0.2-1.3); Blood Urea Nitrogen 14 mg/dL (7-17); Calcium 9.6 mg/dL (8.4-10.2); Carbon Dioxide 27 mmol/L (22-32); Chloride 98 mmol/L (98-107); Estimated Glomerular Filt Rate > 60 mL/min (>60); Globulin 2.8 g/dL (1.7-4.1); Glucose 87 mg/dL (80-110); HEMOLYSIS < 15 (0-50); Sodium 134 mmol/L (137-145); Total Protein 6.9 g/dL (6.3-8.2)
[2023-06-16 21:16] LABS: Sodium Urine Random 129 mmol/L (30-90)
[2023-06-18 14:11] LABS: Osmolality Urine 560 mOsmol/kg (.)
== END ==
PROVIDERS: PCP Family Medicine; Visit Provider Family Medicine
DX: D64.9 Anemia, unspecified (principal); R41.0 Disorientation, unspecified; E87.1 Hypo-osmolality and hyponatremia
CPT/HCPCS: 80053; 83935; 84300; 85025

== ENCOUNTER → 2023-09-16 09:55 | Outpatient (CLI) | payer MEDICARE, SELFPAY ==
[2023-09-19 15:40] LABS: QuantiFERON Mitogen Value 3.59 IU/mL (.); QuantiFERON Nil Value 0.01 IU/mL (.); QuantiFERON TB Gold Plus Negative (Negative); QuantiFERON TB1 Ag Value 0.01 IU/mL (.); QuantiFERON TB2 Ag Value 0.02 IU/mL (.)
== END ==
PROVIDERS: PCP Family Medicine; Visit Provider Family Medicine
DX: Z11.1 Encounter for screening for respiratory tuberculosis (principal)
CPT/HCPCS: 86480

== ENCOUNTER → 2023-09-22 11:05 | Outpatient (CLI) | payer MEDICARE, SELFPAY ==
[2023-09-22 20:19] LABS: Add Manual Diff / Slide Review NO; Basophils Absolute Auto 0 /uL (0-100); Eosinophils Absolute Auto 100 /uL (0-450); Eosinophils Percent Auto 1.6 % (2-4); Hematocrit 37.6 % (36-46); Hemoglobin 12.9 g/dL (12.0-16.0); Lymphocytes Absolute Auto 1400 /uL (1100-4500); Lymphocytes Percent Auto 30.2 % (25-40); Mean Corpuscular HGB Conc 34.2 % (30-36); Mean Corpuscular Volume 93.5 fL (80-100); Monocytes Absolute Auto 500 /uL (0-900); Monocytes Percent Auto 10.2 % (3-14); Neutrophils Absolute Auto 2700 /uL (1500-7000); Platelet Count 343 X10^3/uL (150-400); Red Blood Cell Count 4.02 X10^6/uL (4.0-5.2); Red Cell Distribution Width 13.9 % (11.6-14.8); White Blood Cell Count 4.7 X10^3/uL (4.5-11.0)
[2023-09-22 20:24] LABS: Cholesterol 183 mg/dL (140-199); HDL Cholesterol 101 mg/dL (40-60); LDL Cholesterol Calculated 69 mg/dL (<100); Magnesium 1.8 mg/dL (1.6-2.3); Triglycerides 63 mg/dL (35-150)
[2023-09-22 20:36] LABS: HEMOLYSIS < 15 (0-50); Iron 104 ug/dL (37-170)
[2023-09-22 20:49] LABS: Free T4, Direct Thyroxine 1.17 ng/dL (0.78-2.19)
[2023-09-22 20:50] LABS: Percent Iron Saturation 31 % (15-50); Total Iron Binding Capacity 333 ug/dL (265-497); Transferrin 265 mg/dL (206-381)
[2023-09-22 21:03] LABS: Thyroid Stimulating Hormone 2.46 uIU/mL (0.47-4.68)
[2023-09-22 22:14] LABS: Alanine Aminotransferase 23 IU/L (<35); Albumin 4.6 g/dL (3.5-5.0); Albumin Globulin Ratio 1.8 (1.0-2.8); Alkaline Phosphatase 82 U/L (38-126); Aspartate Aminotransferase 33 IU/L (14-36); BUN Creatinine Ratio 20.3 (6-22); Bilirubin Total 0.5 mg/dL (0.2-1.3); Blood Urea Nitrogen 13 mg/dL (7-17); Carbon Dioxide 27 mmol/L (22-32); Chloride 101 mmol/L (98-107); Estimated Glomerular Filt Rate > 60 mL/min (>60); Globulin 2.6 g/dL (1.7-4.1); Glucose 96 mg/dL (80-110); HEMOLYSIS < 15 (0-50); Sodium 137 mmol/L (137-145); Total Protein 7.2 g/dL (6.3-8.2)
[2023-09-22 23:03] LABS: Vitamin B12 957 pg/mL (239-931)
== END ==
PROVIDERS: Specialist; PCP Family Medicine; Visit Provider Family Medicine
DX: E03.9 Hypothyroidism, unspecified (principal); D64.9 Anemia, unspecified; E78.00 Pure hypercholesterolemia, unspecified; I49.1 Atrial premature depolarization; R79.89 Other specified abnormal findings of blood chemistry; I10 Essential (primary) hypertension
CPT/HCPCS: 80053; 80061; 82607; 83540; 83550; 83735; 84439; 84443; 85025